=== PATIENT | male | born 2000 | race African-American/Black ===

== ENCOUNTER 2022-03-05 17:53 | Emergency (ER) | payer OTHER, SELFPAY | END 2022-03-05 18:02 | disposition left against medical advice (07) | LOC: EXPBETH 17:58 | PROVIDERS: Emergency Provider Registered Nurse; PCP Pediatrics | DX: Z53.21 Procedure and treatment not carried out due to patient leaving prior to being seen by health care provider (principal) | CPT/HCPCS: 99199 ==

== ENCOUNTER 2024-04-08 22:06 | Emergency (ER) | payer OTHER, SELFPAY ==
[2024-04-08 22:10] VITALS: BP 174/74; PULSE 83; RESP 18; TEMP 36.4; O2SAT 100
--- NOTE | 2024-04-08 22:19 | PC.NURSE ---
Patient comes to the triage desk and states my mom's gonna give me some medicine, so we don't have to wait . Patient advised to seek medical attention if anything changes. Patient verbalizes understanding and walks out of the ER in no apparent distress.
== END 2024-04-08 22:19 | disposition left against medical advice (07) ==
PROVIDERS: PCP Family Medicine
DX: K08.89 Other specified disorders of teeth and supporting structures (principal)
CPT/HCPCS: 99199